=== PATIENT | female | born 1980 | race Caucasian/White ===

== ENCOUNTER → 2022-09-30 | Outpatient (CLI) | payer BC ==
[~2022-09-30] MED LIST: ACET-11 PO; FERR325T18 PO; IBUP-1773 PO; PREN1TAB79 PO
--- NOTE | 2022-09-30 12:09 | Diagnostic Imaging Report ---
INDICATION: Routine screening. No prior mammograms are available for comparison. This is a baseline study. 2-D and 3-D bilateral screening mammography was performed with CAD. Scattered fibroglandular densities are identified bilaterally. There is a density in the central left breast on the MLO view at the nipple line. No definite correlate on the CC view seen. Additional views are recommended. Right breast is unremarkable. No malignant-appearing microcalcifications are identified. Axillae are unremarkable. IMPRESSION: Left breast density. Additional views recommended for further evaluation. ACR BI-RADS Category 0: Incomplete. (Needs additional imaging evaluation). Result letter will be mailed to the patient. Note: At least 10% of breast cancer is not imaged by mammography. BI-RADS 0 Dictated by: Dictated on workstation # [id number]
== END ==
LOC: RAD 09:40
PROVIDERS: ATTEND Nurse Practitioner
DX: Z12.31 Encounter for screening mammogram for malignant neoplasm of breast (principal)
CPT/HCPCS: 77063; 77067

== ENCOUNTER → 2022-10-27 | Outpatient (CLI) | payer BC ==
--- NOTE | 2022-10-27 13:07 | Diagnostic Imaging Report ---
Indication: Left breast density. Patient presents for additional views. Comparison is made with screening mammogram from 09/30/2022. Unilateral left 2-D and 3-D diagnostic mammography was performed with with CAD. The current study was also evaluated with a Computer Aided Detection (CAD) system. Included spot compression CC, MLO and mediolateral views as well as conventional 90 degrees lateral view. There is some mild residual density in the outer left breast approximately 8-10 cm from the nipple. This is best seen on the CC spot compression view. No definite abnormality on the mediolateral or MLO views are identified. This density may represent summation but ultrasound is still recommended. IMPRESSION: BI-RADS 0 Mild residual density in the outer left breast mid depth. Further evaluation with ultrasound is recommended and will be performed today. ACR BI-RADS Category 0: Incomplete. (Needs additional imaging evaluation). Result letter will be mailed to the patient. Note: At least 10% of breast cancer is not imaged by mammography. Dictated by: Dictated on workstation # [id number]
--- NOTE | 2022-10-27 14:04 | Diagnostic Imaging Report ---
INDICATION: Left breast density. Correlation is made with prior diagnostic mammogram earlier same day and screening mammogram from 09/30/2022. Sonographic interrogation outer left breast was performed. There is a tiny cyst at the 4:00 location, 8 to 9 cm from the nipple measuring 4 mm x 3 mm x 3 mm. No internal vascularity is seen. This likely accounts for the mammographic density. No solid masses are seen. IMPRESSION: BI-RADS Category 2 Tiny cyst 4:00 location left breast, likely accounting for the mammographic density. The patient may return to routine annual screening mammography. ACR BI-RADS Category 2: Benign findings. Dictated by: Dictated on workstation # [id number]
== END ==
LOC: RAD 12:37
PROVIDERS: ATTEND Family Medicine
DX: N63.20 Unspecified lump in the left breast, unspecified quadrant (principal); R92.2 Inconclusive mammogram
CPT/HCPCS: 76642; 77065; G0279